=== PATIENT | male | born 1940 | race Hispanic/Latino ===

== ENCOUNTER → 2022-02-24 | Outpatient (CLI) | payer MEDICARE ==
[~2022-02-24] MED LIST: ATOR40TA69 PO; CHOL100018 PO; LEVO50TA11 PO
[2022-02-24 13:42] LABS: BASOPHILS % (AUTO) 0.2 % (0.0-5.0); EOSINOPHILS % (AUTO) 0.8 % (0.0-8.0); HEMATOCRIT 43.3 % (42-54); LYMPHOCYTES % (AUTO) 16.5 % (21.0-51.0); MEAN CORPUSCULAR HGB CONC 33.5 g/dL (32.0-36.0); MEAN CORPUSCULAR VOLUME 86.6 fL (79-99); MONOCYTES % (AUTO) 9.3 % (3.0-13.0); NEUTROPHILS % (AUTO) 72.8 % (40.0-77.0); PLATELET COUNT (AUTO) 211 K/uL (130-400); RED CELL DISTRIBUTION WIDTH 13.2 % (11.0-15.5); WHITE BLOOD COUNT (AUTO) 11.6 K/uL (4.8-10.8)
[2022-02-24 14:05] LABS: POTASSIUM 3.9 mmol/L (3.5-5.1); THYROID STIMULATING HORMONE 3.02 uIU/mL (0.36-3.74); TOTAL PROTEIN, SERUM 7.4 g/dL (6.0-8.3)
== END | disposition home or self-care (01) ==
LOC: LAB 09:47
PROVIDERS: ATTEND Internal Medicine Cardiovascular Disease
DX: I87.2 Venous insufficiency (chronic) (peripheral) (principal); I44.1 Atrioventricular block, second degree; R06.09 Other forms of dyspnea; E78.5 Hyperlipidemia, unspecified; R07.9 Chest pain, unspecified; R35.1 Nocturia; R03.0 Elevated blood-pressure reading, without diagnosis of hypertension; M79.652 Pain in left thigh; Z95.0 Presence of cardiac pacemaker; Z79.899 Other long term (current) drug therapy
CPT/HCPCS: 36415; 80053; 80061; 84153; 84443; 85025

== ENCOUNTER → 2022-03-12 | Outpatient (CLI) | payer MEDICARE | END | disposition home or self-care (01) | LOC: SHCH 14:29 | PROVIDERS: ATTEND Internal Medicine Cardiovascular Disease | DX: I51.7 Cardiomegaly (principal); R07.9 Chest pain, unspecified; R06.09 Other forms of dyspnea; Q24.6 Congenital heart block | CPT/HCPCS: 93306 ==

== ENCOUNTER → 2022-03-25 | Outpatient (CLI) | payer MEDICARE ==
[~2022-03-25] MED LIST changes: +REGADENOSON 0.4 MG/5 ML PF SYG IVP SCH
== END | disposition home or self-care (01) ==
LOC: SHCH 08:34
PROVIDERS: ATTEND Internal Medicine Cardiovascular Disease
DX: R94.39 Abnormal result of other cardiovascular function study (principal); R06.09 Other forms of dyspnea; R07.9 Chest pain, unspecified; Z95.0 Presence of cardiac pacemaker
CPT/HCPCS: 78452; 96374; 93017; J2785; A9500 ×2

== ENCOUNTER → 2023-07-25 | Outpatient (CLI) | payer MEDICARE ==
[~2023-07-25] MED LIST changes: -REGADENOSON 0.4 MG/5 ML PF SYG IVP SCH
[2023-07-25] MEDS: REGADENOSON 0.4 MG/5 ML PF SYG IVP ONE (13:43)
== END | disposition home or self-care (01) ==
LOC: SHCH 07:58
PROVIDERS: ATTEND Internal Medicine Cardiovascular Disease
DX: I25.10 Atherosclerotic heart disease of native coronary artery without angina pectoris (principal); R00.2 Palpitations
CPT/HCPCS: 78452; 96374; 93017; J2785; A9500 ×2

== ENCOUNTER → 2023-11-22 | Outpatient (CLI) | payer MEDICARE ==
[~2023-11-22] MED LIST changes: +IOHEXOL 350 MG/ML 100ML INFUS..BTL IV ONE; +metoPROLOL tartRATE 1 MG/ML 5ML VIAL IV ONE
== END | disposition home or self-care (01) ==
LOC: RAH 11:18
PROVIDERS: ATTEND Internal Medicine Cardiovascular Disease
DX: R07.9 Chest pain, unspecified (principal); M47.815 Spondylosis without myelopathy or radiculopathy, thoracolumbar region
CPT/HCPCS: 75574; J3490; Q9967